=== PATIENT | female | born 1985 | race African-American/Black ===

== ENCOUNTER 2017-04-08 17:19 | Emergency (ER) | payer MEDICAID, OTHER ==
[~2017-04-08] VITALS: Ht 172.7 cm; Wt 136.2 kg
[~2017-04-08 17:19] MED LIST: BIRTH CONTROL PILLS PO; CIPR-9 PO; PERC7.5T13 PO; TAMS5CAP PO; ZOFR4TAB PO
[2017-04-08 17:39] VITALS: BP 147/108; PULSE 80; RESP 16; TEMP 99; O2SAT 99
[2017-04-08] MEDS ORDERED: BACT800T5 PO (18:05)
--- NOTE | 2017-04-08 18:12 | PD ---
HPI Chief Complaint: Skin Problem Time Seen by Provider: 18:06 Travel History International Travel<30 days: No Contact w/Intl Traveler<30days: No Traveled to known affect area: No History of Present Illness HPI 31-year-old female presents to the emergency room for evaluation of left lower extremity redness, swelling, and pain after being bitten by a dog last night. Patient states she felt something crawling on her leg in the middle the night and swatted it off. She woke up this morning with 2 painful lesions to her left lower leg. One is in the medial aspect and one is on the anterior aspect. She reports itchiness and has been scratching them. She states the pain and redness started after she scratched it and pus came out. Eyes fever, chills, nausea, and vomiting. PFSH Past Medical History Medical History: Denies Significant Hx Diminished Hearing: No Kidney Stones: Yes Immunizations Current: Yes Tetanus Vaccination: Unknown ?: Not : 1 Para: 1 Ovarian Cysts: Yes Past Surgical History Abdominal Surgery: Yes (C SECTION) Section: Yes (X1) Gynecologic Surgery: Yes () Social History Alcohol Use: Yes (OCC) Tobacco Use: No (NEVER) Substance Use: No Allergies-Medications (Allergen,Severity, Reaction): Coded Allergies: Dairy (Verified Allergy, Severe, Diarrhea, 04/08/17) Codeine (Verified Adverse Reaction, Intermediate, HALLUCINATIONS, 04/08/17) Reported Meds & Prescriptions Reported Meds & Active Scripts Active Flomax (Tamsulosin HCl) 0.4 Mg Cap 0.4 Mg PO HS Zofran (Ondansetron HCl) 4 Mg Tab 4 Mg PO Q6HR PRN Percocet (Oxycodone-Acetaminophen) 7.5-325 mg Tab 1 Tab PO Q6H PRN Cipro (Ciprofloxacin HCl) 500 Mg Tab 500 Mg PO BID Reported [ Control Pills] 1 Tab PO DAILY Review of Systems Except as stated in HPI: all other systems reviewed are Neg Physical Exam Narrative GENERAL: Well-nourished, well-developed female in no acute distress. Afebrile. Ambulatory. SKIN: Focused skin assessment warm/dry. There is an indurated area in the left anterior lower leg which measures about 1 cm in diameter. It is fluctuant but there is no pointing or drainage. There is a zone of inflammation around it measuring 8 x 6 cm but no lymphangitis. HEAD: Normocephalic. EYES: No scleral icterus. No injection or drainage. NECK: Supple, trachea midline. No JVD or lymphadenopathy. CARDIOVASCULAR: Regular rate and rhythm without murmurs, gallops, or rubs. RESPIRATORY: Breath sounds equal bilaterally. No accessory muscle use. PSYCHIATRIC: No delusional thought processes. No hallucinations. Data Data Last Documented VS Vital Signs Date Time Temp Pulse Resp B/P Pulse Ox O2 Delivery O2 Flow Rate FiO2 04/08/17 17:39 99.0 80 16 147/108 99 MDM Medical Decision Making Medical Screen Exam Complete: Yes Emergency Medical Condition: Yes Medical Record Reviewed: Yes Differential Diagnosis Abscess versus cellulitis versus bug bite Narrative Course 31-year-old female presents to the emergency room for evaluation of the left anterior leg pain, swelling, and redness after being bitten by a bug last night. She did not actually see the bug but felt it crawling on her leg. Physical exam reveals tenderness to palpation of a small abscess to the left anterior leg. Patient likely had a bug bite that became infected after scratching it. She reports drainage of pus. Abscess is not amenable to incision and drainage at this time. She'll be treated for cellulitis with Bactrim. Told to follow up with her primary care physician or return for worsening symptoms. She understands and agrees to plan. Diagnosis Primary Impression: Cellulitis of left lower extremity Referrals: Primary Care Physician Patient Instructions: Cellulitis (ED), General Instructions Additional Instructions: Rest and drink plenty of fluids. Take Bactrim as directed, until gone. Follow up with a primary care physician. Return to emergency room for worsening symptoms, as discussed. Med/Other Pt SpecificInfo: Prescription(s) given Scripts Sulfamethoxazole-Trimethoprim (Bactrim DS)800-160 Mg Tab1 Tab PO BID #20 TAB Ref 0 Prov:Cleve Pleitez MD 04/08/17 Disposition: 01 DISCHARGE HOME Condition: Stable Margarita Richards April 08, 2017 18:11
== END 2017-04-08 18:19 | disposition home or self-care (01) ==
LOC: PHEFT 17:19
DX: L03.116 Cellulitis of left lower limb (principal)
CPT/HCPCS: 99283

== ENCOUNTER 2017-08-09 07:54 | Emergency (ER) | payer MEDICAID ==
[~2017-08-09] VITALS: Ht 172.7 cm; Wt 135.0 kg
[~2017-08-09 07:54] MED LIST changes: +BACT800T5 PO
[2017-08-09 08:00] VITALS: BP 165/100; PULSE 75; RESP 16; TEMP 99.3; O2SAT 98
--- NOTE | 2017-08-09 08:18 | PD ---
HPI Chief Complaint: irregular menstrual period Time Seen by Provider: 08:07 Travel History International Travel<30 days: No Contact w/Intl Traveler<30days: No Traveled to known affect area: No History of Present Illness HPI states has h/o irregular periods and this is the reason why she is on control. despite taking it regularly patient has been having her menses for past 12 days, and today she felt light headed and dizzy specially when changing from seated to standing position. denies fever/chills/n/v/d/aparicio/cp/abd pain/ patient has had something similar happen in the past, when her blood level got low and almost needed a transfusion. PFSH Past Medical History Diminished Hearing: No Kidney Stones: Yes Immunizations Current: Yes : 1 Para: 1 Ovarian Cysts: Yes Past Surgical History Abdominal Surgery: Yes (C SECTION) Section: Yes (X1) Gynecologic Surgery: Yes () Social History Alcohol Use: Yes (OCC) Tobacco Use: No (NEVER) Substance Use: No Allergies-Medications (Allergen,Severity, Reaction): Coded Allergies: lactose (Unverified Allergy, Severe, Diarrhea, 07/03/17) codeine (Unverified Adverse Reaction, Intermediate, HALLUCINATIONS, ) Reported Meds & Prescriptions Reported Meds & Active Scripts Active Provera (Medroxyprogesterone Acetate) 10 Mg Tab 10 Mg PO DAILY Start day 16 Reported Sprintec 28 (Norgestimate-Ethinyl Estradiol) 0.25-35 mg-Mcg Tab 1 Tab PO DAILY [ Control Pills] 1 Tab PO DAILY Review of Systems Except as stated in HPI: all other systems reviewed are Neg Genitourinary: Positive: Vaginal Bleeding Physical Exam Narrative GENERAL: SKIN: Warm and dry. HEAD: Atraumatic. Normocephalic. EYES: Pupils equal and round. No scleral icterus. No injection or drainage. ENT: No nasal bleeding or discharge. Mucous membranes pink and moist. NECK: Trachea midline. No JVD. CARDIOVASCULAR: Regular rate and rhythm. RESPIRATORY: No accessory muscle use. Clear to auscultation. Breath sounds equal bilaterally. GASTROINTESTINAL: Abdomen soft, non-tender, nondistended. MUSCULOSKELETAL: Extremities without clubbing, cyanosis, or edema. No obvious deformities. NEUROLOGICAL: Awake and alert. No obvious cranial nerve deficits. Motor grossly within normal limits. Five out of 5 muscle strength in the arms and legs. Normal speech. PSYCHIATRIC: Appropriate mood and affect; insight and judgment normal. Data Data Last Documented VS Vital Signs Date Time Temp Pulse Resp B/P (MAP) Pulse Ox O2 Delivery O2 Flow Rate FiO2 08/09/17 08:00 99.3 75 16 165/100 (121) 98 Room Air Orders Orders Complete Blood Count With Diff (08/09/17 08:08) Comprehensive Metabolic Panel (08/09/17 08:08) Beta Hcg (Quant/Titer) (08/09/17 08:08) Iv Access Insert/Monitor (08/09/17 08:08) Ecg Monitoring (08/09/17 08:08) Labs Laboratory Tests Test 08/09/17 08:25 White Blood Count 6.0 TH/MM3 Red Blood Count 5.70 MIL/MM3 Hemoglobin 11.9 GM/DL Hematocrit 37.7 % Mean Corpuscular Volume 66.2 FL Mean Corpuscular Hemoglobin 20.8 PG Mean Corpuscular Hemoglobin Concent 31.4 % Red Cell Distribution Width 15.8 % Platelet Count 183 TH/MM3 Mean Platelet Volume 8.7 FL Neutrophils (%) (Auto) 53.4 % Lymphocytes (%) (Auto) 32.0 % Monocytes (%) (Auto) 9.0 % Eosinophils (%) (Auto) 4.8 % Basophils (%) (Auto) 0.8 % Neutrophils # (Auto) 3.3 TH/MM3 Lymphocytes # (Auto) 1.9 TH/MM3 Monocytes # (Auto) 0.5 TH/MM3 Eosinophils # (Auto) 0.3 TH/MM3 Basophils # (Auto) 0.0 TH/MM3 CBC Comment AUTO DIFF Differential Comment AUTO DIFF CONFIRMED Target Cells 1+ Blood Urea Nitrogen 7 MG/DL Creatinine 0.72 MG/DL Random Glucose 91 MG/DL Total Protein 7.3 GM/DL Albumin 3.2 GM/DL Calcium Level 8.6 MG/DL Alkaline Phosphatase 84 U/L Aspartate Amino Transf (AST/SGOT) 26 U/L Alanine Aminotransferase (ALT/SGPT) 28 U/L Total Bilirubin 0.3 MG/DL Sodium Level 139 MEQ/L Potassium Level 3.8 MEQ/L Chloride Level 106 MEQ/L Carbon Dioxide Level 24.4 MEQ/L Anion Gap 9 MEQ/L Estimat Glomerular Filtration Rate 114 ML/MIN Human Chorionic Gonadotropin, Quant LESS THAN 1 MIU/ML MDM Medical Decision Making Medical Screen Exam Complete: Yes Emergency Medical Condition: Yes Medical Record Reviewed: Yes Differential Diagnosis dub v related v anemia v dehydration v electrolyte abnl Narrative Course AFTER EVALUATION H/H WAS STABLE AND NO E/O ANEMIA, NO E/O DEHYDRATION NOR ANY ELECTROLYTE IMBALANCE... QUANT NEGATIVE WELL. Diagnosis Primary Impression: Dysfunctional uterine bleeding Patient Instructions: Dysfunctional Uterine Bleeding (ED), General Instructions Scripts Medroxyprogesterone Acetate (Provera) 10 Mg Tab 10 MG PO DAILY for Uterine bleeding, #10 TAB 0 Refills Start day 16 Prov: Chance Carreon MD 08/09/17 Disposition: DISCHARGE HOME Condition: Stable Chance Carreon MD Aug 09, 2017 08:18
[2017-08-09] MEDS ORDERED: SPRI28TA PO (08:19)
[2017-08-09 08:37] LABS: AUTOMATED NEUTROPHIL # 3.3 TH/MM3 (1.8-7.7); BASOPHIL % 0.8 % (0.0-2.0); EOSINOPHIL # 0.3 TH/MM3 (0-0.4); EOSINOPHIL % 4.8 % (0.0-4.0); HEMATOCRIT 37.7 % (35.0-46.0); HEMO FLAGS AUTO DIFF; LYMPHOCYTE # 1.9 TH/MM3 (1.0-4.8); MEAN CELL VOLUME 66.2 FL (80.0-100.0); MEAN CORPUSCULAR HEMOGLOBIN 20.8 PG (27.0-34.0); MEAN CORPUSCULAR HGB CONC 31.4 % (32.0-36.0); NEUT % 53.4 % (16.0-70.0); PLATELET COUNT 183 TH/MM3 (150-450); RED CELL DISTRIBUTION WIDTH 15.8 % (11.6-17.2)
[2017-08-09 08:44] LABS: CHLORIDE 106 MEQ/L (98-107); POTASSIUM 3.8 MEQ/L (3.5-5.1); SODIUM (NA) 139 MEQ/L (136-145)
[2017-08-09 08:48] LABS: ANION GAP 9 MEQ/L (5-15); BICARBONATE 24.4 MEQ/L (21.0-32.0); BLOOD UREA NITROGEN 7 MG/DL (7-18)
[2017-08-09 08:51] LABS: ALT (GPT) 28 U/L (10-53); AST (GOT) 26 U/L (15-37); GLOMERULAR FILTRATION RATE 114 ML/MIN (>89)
[2017-08-09 08:52] LABS: TOTAL BILIRUBIN ADULT 0.3 MG/DL (0.2-1.0)
[2017-08-09 08:54] LABS: ALKALINE PHOSPHATASE 84 U/L (45-117)
[2017-08-09 08:56] LABS: BETA HCG QUANT LESS THAN 1 MIU/ML (0-5)
[2017-08-09 09:00] LABS: SCAN/DIFF AUTO DIFF CONFIRMED; TARGET CELLS 1+ (NORMAL)
[2017-08-09] MEDS ORDERED: PROV10TA PO (09:19)
== END 2017-08-09 09:48 | disposition home or self-care (01) ==
LOC: PHED 07:54
DX: N93.8 Other specified abnormal uterine and vaginal bleeding (principal)
CPT/HCPCS: 80053; 84702; 85025; 99283